=== PATIENT | female | born 1995 | race Caucasian/White ===

== ENCOUNTER 2019-09-27 06:09 | Emergency (ER) | payer MEDICAID ==
[~2019-09-27] VITALS: Ht 160 cm; Wt 68.2 kg
[2019-09-27 06:15] VITALS: BP 125/90
--- NOTE | 2019-09-27 06:15 | NUR ---
to bed # 01 ambulatory
--- NOTE | 2019-09-27 06:21 | NUR ---
ASSESMENT COMPLETE. PT PLACED IN GOWN AND SEATED UPRIGHT IN BED. SAFETY PRECAUTIONS IN PLACE. FAMILY AT BEDSIDE. WILL CONTINUE TO MONITOR.
--- NOTE | 2019-09-27 06:50 | NUR ---
X-Ray at bedside.
--- NOTE | 2019-09-27 07:17 | NUR ---
BEDSIDE REPORT GIVEN TO KELSEY BREWER. TRANSFER OF CARE AT THIS TIME.
--- NOTE | 2019-09-27 07:17 | NUR ---
RECEIVED REPORT FROM ROBBY BOTELLO
--- NOTE | 2019-09-27 08:00 | NUR ---
RT AT BEDSIDE.
[2019-09-27] MEDS ORDERED: chlorproMAZINE 25 MG TAB PO ONE (08:20)
[2019-09-27 09:12] VITALS: BP 113/73
--- NOTE | 2019-09-27 09:12 | NUR ---
Patient discharged with v/s stable. Written and verbal after care instructions given and explained. Patient alert, oriented and verbalized understanding of instructions. Ambulatory with steady gait. All questions addressed prior to discharge. ID band removed. Patient advised to follow up with PMD. Rx of THORAZINE given. Patient educated on indication of medication including possible reaction and side effects. Opportunity to ask questions provided and answered.
== END 2019-09-27 09:12 | disposition home or self-care (01) ==
LOC: MED 06:09
DX: R06.6 Hiccough (principal); R03.0 Elevated blood-pressure reading, without diagnosis of hypertension
CPT/HCPCS: 36600; 71045; 74021; 82803; 99284; Q0092